=== PATIENT | female | born 1965 | race Caucasian/White ===

== ENCOUNTER → 2016-07-08 | Outpatient (CLI) | payer BC | LOC: GMA 19:19 | PROVIDERS: ATTEND Nurse Practitioner Family | DX: N89.8 Other specified noninflammatory disorders of vagina (principal) ==

== ENCOUNTER → 2016-10-24 | Outpatient (CLI) | payer BC | END | disposition home or self-care (01) | LOC: GMAM 10:36 | PROVIDERS: ATTEND Family Medicine | DX: E06.3 Autoimmune thyroiditis (principal); E53.9 Vitamin B deficiency, unspecified; E55.9 Vitamin D deficiency, unspecified ==

== ENCOUNTER → 2016-10-24 | Outpatient (CLI) | payer BC | END | disposition home or self-care (01) | LOC: GMAM 14:14 | PROVIDERS: ATTEND Family Medicine | DX: N39.0 Urinary tract infection, site not specified (principal) ==

== ENCOUNTER → 2017-02-26 | Outpatient (CLI) | payer BC | END | disposition home or self-care (01) | LOC: GMAM 15:04 | PROVIDERS: ATTEND Family Medicine | DX: E55.9 Vitamin D deficiency, unspecified (principal) ==

== ENCOUNTER → 2017-09-01 | Outpatient (CLI) | payer BC | LOC: GMAM 10:46 | PROVIDERS: ATTEND Family Medicine | DX: E53.9 Vitamin B deficiency, unspecified (principal); E06.3 Autoimmune thyroiditis; N39.0 Urinary tract infection, site not specified; E55.9 Vitamin D deficiency, unspecified ==

== ENCOUNTER → 2017-10-21 | Outpatient (CLI) | payer BC | LOC: GMAM 16:41 | PROVIDERS: ATTEND Family Medicine | DX: D50.0 Iron deficiency anemia secondary to blood loss (chronic) (principal); R58 Hemorrhage, not elsewhere classified ==

== ENCOUNTER → 2018-03-25 | Outpatient (CLI) | payer BC | LOC: GMAM 14:41 | PROVIDERS: ATTEND Family Medicine | DX: D51.3 Other dietary vitamin B12 deficiency anemia (principal); E03.9 Hypothyroidism, unspecified; E55.9 Vitamin D deficiency, unspecified ==

== ENCOUNTER → 2018-04-08 | Outpatient (CLI) | payer BC | LOC: GMAM 16:56 | PROVIDERS: ATTEND Family Medicine | DX: R29.898 Other symptoms and signs involving the musculoskeletal system (principal) ==

== ENCOUNTER → 2018-05-01 | Outpatient (CLI) | payer BC ==
--- NOTE | 2018-05-04 07:09 | RAD ---
EXAM DESCRIPTION: Pelvis CLINICAL HISTORY: 52 years Female, HIP PN COMPARISON: None. FINDINGS: Two views of the pelvis show no acute fracture or malalignment. The hip joint spaces are well-maintained. No focal bone lesion. The symphysis and hip joint spaces are unremarkable. Postoperative changes in the lumbar spine and pelvis are only partially visualized. IMPRESSION: Postoperative changes in the lumbar spine, but no additional abnormality to explain patient's symptoms. Electronically signed by: Jose Antonio Garcia MD 05/04/2018 7:08 AM [facility]
--- NOTE | 2018-05-04 07:10 | RAD ---
EXAM DESCRIPTION: Knee,Left Complete CLINICAL HISTORY: 52 years Female, KNEE PN COMPARISON: None. FINDINGS: Four views of the left knee showing metallic cancellous screw in the proximal left tibia without apparent hardware complication. No acute fracture or malalignment is seen. No joint effusion. Mild medial and lateral joint space narrowing is noted. IMPRESSION: Postoperative and mild degenerative changes, otherwise unremarkable exam. Electronically signed by: Jose Antonio Garcia MD 05/04/2018 7:09 AM [facility]
--- NOTE | 2018-05-04 07:12 | RAD ---
EXAM DESCRIPTION: Knee,Right Complete CLINICAL HISTORY: 52 years Female, KNEE PN COMPARISON: None. FINDINGS: Four views of the right knee show a cancellous screw in the proximal right tibia without apparent hardware complication. No acute fracture or malalignment is seen. Probable tiny right knee joint effusion. Moderate medial joint space narrowing is present with only slight joint space narrowing laterally. The soft tissues are unremarkable. IMPRESSION: Postoperative and degenerative changes including moderate medial joint space narrowing. Probable tiny right knee joint effusion. Electronically signed by: Jose Antonio Garcia MD 05/04/2018 7:10 AM [facility]
== END ==
LOC: RAD 11:00
PROVIDERS: ATTEND Orthopaedic Surgery
DX: M25.561 Pain in right knee (principal); M25.562 Pain in left knee; M25.551 Pain in right hip; M25.552 Pain in left hip; Z98.890 Other specified postprocedural states

== ENCOUNTER → 2018-06-05 | Outpatient (CLI) | payer BC | LOC: LAB.O 11:14 | PROVIDERS: ATTEND Orthopaedic Surgery | DX: Z01.818 Encounter for other preprocedural examination (principal) ==

== ENCOUNTER 2018-06-12 05:54 | Day surgery (SDC) | payer BC ==
--- NOTE | 2018-06-11 09:08 | HP ---
CHIEF COMPLAINT: Left knee pain. HISTORY OF PRESENT ILLNESS: Faith is a 52-year-old female with a history of knee pain that has been going on for years. She has had interventions which have included knee arthroscopy several years ago in addition to injections. Of late, the knee pain has not been responsive to conservative measures. Because of her ongoing pain and failure of conservative measures, she has requested operative intervention. After discussing the risks, benefits and alternatives to operative therapy, the patient has given informed consent. PAST SURGICAL HISTORY: 1. Lumbar fusion. 2. Bilateral knee arthroscopy. 3. Carpal tunnel release. MEDICATIONS: 1. Amlodipine. 2. Desvenlafaxine. 3. Levothyroxine. 4. Trazodone. ALLERGIES: CODEINE, DOXYCYCLINE, IODINE, LATEX, SULFA. FAMILY HISTORY: None pertinent to today's complaint. SOCIAL HISTORY: The patient does not drink, smoke or use any illicit drugs. REVIEW OF SYSTEMS: Negative except as indicated in the History of Present Illness. PHYSICAL EXAMINATION: VITAL SIGNS: Blood pressure 141/114. Pulse 79. Height 5'2". Weight 185 pounds. MENTAL STATUS: The patient is awake, alert, and is able to give a good history and participate in the physical. The patient is oriented to person, place and time. SKIN: Normal tone and turgor. MUSCULOSKELETAL: She is very tender diffusely about the knee with crepitus throughout the range of motion. She does maintain full extension with flexion only to about 115 today. Sensation is intact. She does have severe pain along the medial joint-line. She has no varus/valgus or anterior/posterior laxity. Strength is 5/5. IMAGING: Imaging shows narrowing predominantly of the medial joint space. ASSESSMENT: 1. Knee pain with arthritis in a 52-year-old female. PLAN: The plan at this point is to try scoping her knee. We have tried conservative measures, however, she has failed to gain relief. We have discussed the risks, benefits, and alternatives to operative therapy as well as the potential limited benefits of knee arthroscopy in these instances, she has given informed consent. [id number]
[2018-06-12] MEDS ORDERED: SODIUM CHL 0.9% 100ML MINI-BAG 100 ML IVPB ONE (06:03)
[2018-06-12] MEDS ORDERED: VANCOMYCIN HCL INJ 1,000 MG VIAL IVPB ONE (06:03)
[2018-06-12] MEDS ORDERED: LACTATED RINGERS 1,000 ML ONE (06:03)
[2018-06-12] MEDS ORDERED: SODIUM CHLORIDE 0.9% 250ML 250 ML ONE (06:04)
[2018-06-12] MEDS ORDERED: ceFAZolin SODIUM 1 GM VIAL ONE ×2 (06:04→08:06)
[2018-06-12] MEDS ORDERED: HYDROmorphone HCL INJ 2 MG/ML VIAL ONE (08:11)
[2018-06-12] MEDS ORDERED: MIDAZOLAM INJ 2 MG/2 ML VIAL ONE (08:12)
[2018-06-12] MEDS ORDERED: BUPIVACAINE 0.5% 30 ML VIAL INJ ONE (08:13)
[2018-06-12] MEDS ORDERED: BUPIVACAINE LIPOSOME 13.3 MG/ML VIAL INJ ONE (08:14)
[2018-06-12] MEDS ORDERED: LIDOCAINE 1% 10 ML VIAL INJ ONE (10:00)
[2018-06-12] MEDS ORDERED: METOCLOPRAMIDE HCL INJ 10 MG/2 ML VIAL IV ONE (10:00)
[2018-06-12] MEDS ORDERED: raNITIdine HCL INJ 25 MG/ML VIAL IV ONE (10:00)
[2018-06-12] MEDS ORDERED: DEXAMETHASONE INJ 10 MG/ML VIAL IV ONE (10:00)
[2018-06-12] MEDS ORDERED: KETOROLAC TROMETHAMINE INJ 30 MG/ML VIAL IV ONE (10:00)
[2018-06-12] MEDS ORDERED: PROPOFOL 200 MG/20 ML VIAL IV ONE (10:00)
[2018-06-12] MEDS: ceFAZolin SODIUM 1 GM VIAL ONE ×2 (10:31→10:46)
[2018-06-12] MEDS: VANCOMYCIN HCL INJ 1,000 MG VIAL IVPB ONE ×2 (10:32→10:46)
[2018-06-12 12:37] VITALS: BP 142/82; TEMP 97.8; O2SAT 100
--- NOTE | 2018-06-18 09:20 | OP ---
DATE OF PROCEDURE: 06/12/18 PREOPERATIVE DIAGNOSIS: 1. Left knee pain. POSTOPERATIVE DIAGNOSIS: 1. Chondromalacia. 2. Osteoarthritis. PROCEDURE: 1. Chondroplasty. 2. Debridement. SURGEON: Wolf Knight MD. DOCKMASTER: Renato King CST, SA-C. ANESTHESIA: General anesthesia. COMPLICATIONS: None. FINDINGS: 1. Full thickness defect involving the medial femoral condyle with grade 2 to 3 changes on the tibial plateau. 2. No meniscus tear medially. 3. Normal anterior cruciate ligament, normal posterior cruciate ligament. 4. Softening of the cartilage in the lateral compartment. 5. Normal lateral gutter. 6. Normal suprapatellar pouch. 7. Softening of the cartilage with early chondromalacia of the patellofemoral joint. 8. Normal medial gutter. INDICATION: Faith is a patient of ours that we have seen for several years for her pain. She has had pain that has been refractory to conservative measures. Because of her ongoing pain, she has requested operative intervention. After discussing the risks, benefits and alternatives to that, the patient has given informed consent for that. PROCEDURE: The patient was brought to the Operating Room and placed in supine position. General anesthesia was induced and the patient's leg was sterilely prepped and draped. Following prepping and draping, standard anteromedial and anterolateral portals were established. Diagnostic arthroscopy was carried out with the above findings. Attention was then focused on the medial femoral condyle. A 3.5 mm full radius shaver was used to debride the condyle to stable base. The area was thoroughly probed to ensure that there were no unstable fragments. The knee was thoroughly irrigated and drained. Following draining of the knee, the wounds were closed with Nylon suture. Sterile dressings were placed. The patient was awoken from anesthesia and taken to Recovery. POSTOPERATIVE PLAN: The patient will be partial weightbearing and will followup with us in two days. [facility][id number] [facility]
== END 2018-06-12 12:28 | disposition home or self-care (01) ==
LOC: AMB 05:54
PROVIDERS: ATTEND Orthopaedic Surgery
DX: M22.42 Chondromalacia patellae, left knee (principal); M17.12 Unilateral primary osteoarthritis, left knee; I10 Essential (primary) hypertension; E66.9 Obesity, unspecified; Z98.1 Arthrodesis status; Z88.5 Allergy status to narcotic agent; Z88.2 Allergy status to sulfonamides; Z91.040 Latex allergy status; Z79.899 Other long term (current) drug therapy
CPT/HCPCS: 01400; 29877; 36415; 80048; 80307; 81001; 81025; 85025; 93005; J0690; J1100; J1170; J1885; J2250; J2765; J2780; J3370; J3490; J7050; J7120

== ENCOUNTER 2018-10-05 19:53 | Emergency (ER) | payer BC ==
--- NOTE | 2018-10-05 20:38 | ED.PDOC ---
History of Present Illness - General Chief Complaint: Lower Extremity Injury Stated Complaint: Left Knee Pain Time Seen by Provider: 10/05/18 20:34 - History of Present Illness Initial Comments: 52 Y/O FEMALE, C/O L KNEE AND HIP PAIN. PT REFERS AROUND 1850 WAS TRYING TO GO OVER A CHILD GATE AND TRIPPED, FELL ON HER L KNEE. C/O L KNEE AND HIP PAIN, PAIN IS CONSTANT, MODERATE, INCREASES WITH TOUCH AND MOVEMENT. DENIES LOC, NECK OR BACK PAIN, CP, ABD PAIN, ULLOA, FOCAL STS. Allergies/Adverse Reactions: Allergies Codeine Allergy (Verified 10/05/18 20:12) Doxycycline Allergy (Verified 10/05/18 20:12) Iodinated Contrast Media Allergy (Verified 10/05/18 20:12) Latex Allergy (Verified 10/05/18 20:12) Sulfa Drugs Allergy (Verified 10/05/18 20:12) Home Medications: Ambulatory Orders Desvenlafaxine Succinate [Pristiq] 100 mg PO HS 09/13/13 Levothyroxine Sodium [Synthroid] 125 mcg PO AM 09/13/13 Amlodipine Besylate-Benazepril [Lotrel 5-20 mg] 1 cap PO DAILY 06/11/18 Diclofenac [Zorvolex] 35 mg TID 06/11/18 Review of Systems - Review of Systems Constitutional: States: no symptoms reported EENTM: States: no symptoms reported Respiratory: States: no symptoms reported Cardiology: States: no symptoms reported Gastrointestinal/Abdominal: States: no symptoms reported Genitourinary: States: no symptoms reported Musculoskeletal: States: joint pain. Denies: back pain, muscle pain, muscle stiffness, neck pain Skin: States: no symptoms reported Past Medical History (General) - Patient Medical History Hx Seizures: No Hx Stroke: No Hx Dementia: No Hx Asthma: No Hx of COPD: No Hx Cardiac Disorders: No Hx Congestive Heart Failure: No Hx Pacemaker: No Hx Hypertension: Yes Hx Thyroid Disease: Yes Hx Diabetes: No Hx Gastroesophageal Reflux: No Hx Renal Disease: No Hx Cancer: No Hx of HIV: No Hx Hepatitis C: No Hx MRSA: Yes - MRSA in wound three years ago MRSA Source:: Wound Surgical History: other - Vaccination History Hx Tetanus, Diphtheria Vaccination: Yes Hx Influenza Vaccination: No Hx Pneumococcal Vaccination: No - Social History Hx Tobacco Use: No Hx Chewing Tobacco Use: No Hx Alcohol Use: No Hx Substance Use: No Hx Substance Use Treatment: No Hx Depression: No Feels Threatened In Home Enviroment: No Feels Threatened In a Relationship: No Hx Physical Abuse: No Hx Emotional Abuse: No Hx Suspected Abuse: No - Activities of Daily Living Hospice Agency (if applicable):: None - Female History Patient is a Female of Child Bearing Age (10 -59 yrs old): Yes Patient : No - Triage Comment ED Triage Comment: Pt states that she tripped over a baby gate and fell on a concrete floor. Pt states that her left hip and left knee are hurting. Pt states pain is 6/10. Family Medical History - Family History Mother Family History: Unknown Living Status: Still Living Physical Exam - Physical Exam General Appearance: Alert, Comfortable Eye Exam: bilateral normal - WILLY, EOMI Ears, Nose, Throat: normal ENT inspection, normal pharynx Neck: non-tender, full range of motion, supple Respiratory: chest non-tender, lungs clear, normal breath sounds, no respiratory distress, no accessory muscle use Cardiovascular/Chest: normal peripheral pulses, regular rate, rhythm, no edema, no gallop Gastrointestinal/Abdominal: normal bowel sounds, non tender, soft, no organomegaly, no pulsatile mass, abnormal bowel sounds Extremity: normal range of motion, other - DIFFUSE TENDERNESS TO PALPTATION L KNEE, MAINLY ANTERIOR ASPECT, ROM WNL, N/V INTACT, DRAWER SIGN (-), LIGAMENT WNL. SOME TENEDERNESS TO PALPATION OVER L HIP, ROM WNL, ROTATION SL UNCOMFORTABLE. NECK AND BACK NO TENDERNESS TO PALPATION. REST UNREMARKABLE. 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 REFERS SHE HAS HER OWN CRUTCHES AT HOME. ADVISED TO CALL HER ORTHO IN AM FOR FOLLOW UP. - EKG/XRAY/CT Xray Comments: PELVIS, L HIP, L KNEE: NAF Departure - Departure Clinical Impression: Contusion of left knee, initial encounter Hip sprain Qualifiers: Encounter type: initial encounter Laterality: left Qualified Code(s): S73.102A - Unspecified sprain of left hip, initial encounter Disposition: Discharge to Home or Self Care Condition: Fair Departure Forms: ED Discharge - Pt. Copy, Patient Portal Self Enrollment Instructions: DI for Leg Pain, DI for Knee Pain, DI for Trauma Diet: resume usual diet Referrals: Frank Correa MD [Primary Care Provider] - 1-2 Weeks Home Medications: Ambulatory Orders Desvenlafaxine Succinate [Pristiq] 100 mg PO HS 09/13/13 Levothyroxine Sodium [Synthroid] 125 mcg PO AM 09/13/13 Amlodipine Besylate-Benazepril [Lotrel 5-20 mg] 1 cap PO DAILY 06/11/18 Diclofenac [Zorvolex] 35 mg TID 06/11/18
--- NOTE | 2018-10-05 20:54 | RAD ---
EXAM: Knee,Left 2 or More Views CLINICAL INDICATION: Left knee pain COMPARISON: 05/01/2018 FINDINGS: Three views of the left knee reveal no evidence of fracture. There is no knee joint effusion. No significant degenerative joint disease is identified. The osseous structures are intact and unremarkable. Again noted is an orthopedic screw in the tibial tuberosity, unchanged from the previous study. IMPRESSION: Negative left knee radiographs. Electronically signed by: Rohit Salinas MD 10/05/2018 8:51 PM CDT
--- NOTE | 2018-10-05 20:57 | RAD ---
EXAM: Pelvis (accession [id number]), Hip,Left 2 Views (accession [id number]) CLINICAL INDICATION: Left hip pain COMPARISON: There is no previous study for comparison. FINDINGS: 2 views of the left hip and a single view of the pelvis reveal no evidence of any fracture. The osseous structures appear intact and unremarkable. There are no radiopaque foreign bodies. Bilateral Essure contraceptive devices are incidentally noted. Also incidentally noted are surgical changes in the lower lumbar spine. IMPRESSION: Normal pelvis and left hip radiographs. Electronically signed by: Rohit Salinas MD 10/05/2018 8:54 PM CDT
--- NOTE | 2018-10-05 20:58 | RAD ---
EXAM: Pelvis (accession [id number]), Hip,Left 2 Views (accession [id number]) CLINICAL INDICATION: Left hip pain COMPARISON: There is no previous study for comparison. FINDINGS: 2 views of the left hip and a single view of the pelvis reveal no evidence of any fracture. The osseous structures appear intact and unremarkable. There are no radiopaque foreign bodies. Bilateral Essure contraceptive devices are incidentally noted. Also incidentally noted are surgical changes in the lower lumbar spine. IMPRESSION: Normal pelvis and left hip radiographs. Electronically signed by: Rohit Salinas MD 10/05/2018 8:54 PM CDT
[2018-10-05 21:24] VITALS: TEMP 97.6
[2018-10-05] MEDS ORDERED: HYDROcodone 5MG/APAP 325MG 1 EA TAB PO ONE (21:51)
[2018-10-05 22:37] VITALS: BP 131/80; O2SAT 99
== END 2018-10-05 22:35 | disposition home or self-care (01) ==
LOC: ER 19:53
DX: S80.02XA Contusion of left knee, initial encounter (principal); S73.102A Unspecified sprain of left hip, initial encounter; I10 Essential (primary) hypertension; E07.9 Disorder of thyroid, unspecified; Z79.899 Other long term (current) drug therapy; Z88.5 Allergy status to narcotic agent; Z88.1 Allergy status to other antibiotic agents; Z91.041 Radiographic dye allergy status; Z91.040 Latex allergy status; Z88.2 Allergy status to sulfonamides; W01.0XXA Fall on same level from slipping, tripping and stumbling without subsequent striking against object, initial encounter; Y92.9 Unspecified place or not applicable

== ENCOUNTER → 2018-10-21 | Outpatient (CLI) | payer BC | LOC: GMAM 10:49 | PROVIDERS: ATTEND Family Medicine | DX: E53.9 Vitamin B deficiency, unspecified (principal); I10 Essential (primary) hypertension; E03.9 Hypothyroidism, unspecified; E55.9 Vitamin D deficiency, unspecified ==